=== PATIENT | female | born 1970 | race Caucasian/White ===

== ENCOUNTER → 2016-07-10 | Outpatient (CLI) | payer OTHER ==
[~2016-07-10] MED LIST: ATIVAN 1MG T1 MG/TAB PO; VIIBRYD40 MG PO
== END ==
LOC: BHSO 09:03
DX: F41.1 Generalized anxiety disorder (principal)

== ENCOUNTER → 2016-09-10 | Outpatient (CLI) | payer OTHER | LOC: BHSO 10:01 | DX: F33.42 Major depressive disorder, recurrent, in full remission (principal) ==